=== PATIENT | male | born 1965 | race Hispanic/Latino ===

== ENCOUNTER 2017-05-21 07:01 | Emergency (ER) | payer SELFPAY ==
[2017-05-21 07:06] VITALS: BP 170/110
== END 2017-05-21 07:33 | disposition left against medical advice (07) ==
LOC: ED 07:01
DX: M54.2 Cervicalgia (principal); Z53.21 Procedure and treatment not carried out due to patient leaving prior to being seen by health care provider
CPT/HCPCS: 93005; 93010

== ENCOUNTER 2019-11-11 09:41 | Inpatient (IN) | payer BC ==
--- NOTE | 2019-11-11 10:01 | Cat Scan Report ---
CT head/brain wo con INDICATION: MAIN. TECHNIQUE: Routine CT head without contrast. All CT scans at this location are performed using CT dos e reduction for ALARA by means of automated exposure control. COMPARISON: None. FINDINGS: BRAIN / INTRACRANIAL CONTENTS: No acute hemorrhage, mass effect, midline shift, or hydrocephalus. No appreciable acute large territorial or lacunar infarct. No chronic infarct or focal atrophy. Normal b rain volume and ventricular/sulcal size for age. ORBITS: No significant abnormality of visualized orbits. SINUSES / MASTOIDS: There is mild mucosal thickening in the bilateral maxillary sinuses. ADDITIONAL FINDINGS: None. IMPRESSION: 1. No acute intracranial abnormality. Signer Name: Cornell Pedro MD Signed: 11/11/2019 9:57 AM Workstation Name: [id number]
--- NOTE | 2019-11-11 10:05 | Emergency Department Report ---
ED Neuro Deficit HPI - General Stated Complaint: POSS STROKE Time Seen by Provider: 11/11/19 09:51 - History of Present Illness Initial Comments: 53-year-old male reportedly developed slurred speech at 9:02 AM this morning. On my encounter with this patient he had an NIH stroke score of 0. His speech was coherent. He told me he had a "white coat syndrome". Fortunately, I was not wearing a white coat. I did ask him if he had trouble with anxiety and although he did appear somewhat anxious he stated no. In any case, he states he has not had previous similar such symptoms. He denies any focal weakness or numbness. He denied any difficulty with his gait or balance. I did confer with the tele-neurologist. He he did state that he could not rule out a large vessel occlusion clinically. Personally, I did not think this was a very likely scenario but I am sure the tele-neurologist is accurate and absolute sense. He stated that he offered TPA. I found this to some degree statistically surprising. However, we proceeded with angiography which was negative. The tele-neurologist did recommend the patient be admitted to complete a stroke work-up. The hospitalist was advised. -: Sudden Location: speech History of same: No Place: home On Anticoagulants: No Context: sudden onset Associated Symptoms: denies other symptoms - Related Data Allergies/Adverse Reactions: Allergies Allergy/AdvReac Type Severity Reaction Status Date / Time codeine Allergy Vomiting Verified 05/21/17 07:11 ED Review of Systems ROS: Stated complaint: POSS STROKE Other details as noted in HPI Constitutional: denies: chills, fever Eyes: denies: eye pain, vision change ENT: denies: ear pain, throat pain Respiratory: denies: cough, shortness of breath, wheezing Cardiovascular: denies: chest pain, palpitations Endocrine: no symptoms reported Gastrointestinal: denies: abdominal pain, nausea, diarrhea Genitourinary: denies: urgency, dysuria Musculoskeletal: denies: back pain, joint swelling, arthralgia Skin: denies: rash, lesions Neurological: denies: headache, weakness, paresthesias Psychiatric: denies: anxiety, depression Hematological/Lymphatic: denies: easy bleeding, easy bruising ED Past Medical Hx - Past Medical History Previous Medical History?: No - Social History Smoking Status: Current Every Day Smoker Substance Use Type: Alcohol ED Neuro Physical Exam - General General appearance: alert, in no apparent distress Suspected Stroke: Yes (Possible but does not appear likely) - Head Head exam: Present: atraumatic, normocephalic - Eye Eye exam: Present: normal appearance, PERRL, EOMI. Absent: scleral icterus - ENT ENT exam: Present: mucous membranes moist - Neck Neck exam: Present: normal inspection - Respiratory Respiratory exam: Present: normal lung sounds bilaterally. Absent: respiratory distress - Cardiovascular Cardiovascular Exam: Present: regular rate, normal rhythm. Absent: systolic murmur, diastolic murmur, rubs, gallop - GI/Abdominal GI/Abdominal exam: Present: soft, normal bowel sounds. Absent: distended, tenderness, guarding, rebound, rigid - Rectal Rectal exam: Present: deferred - Extremities Exam Extremities exam: Present: normal inspection - Back Exam Back exam: Present: normal inspection - Neurological Exam Neurological exam: Present: alert, oriented X3, CN II-XII intact, other (Speech coherent). Absent: motor sensory deficit - NIHSS Assessment Interval: Baseline 1a. Level of Consciousness: alert/keenly responsive 1b. LOC Questions: answers both correctly 1c. LOC Commands: performs tasks correctly 2. Best Gaze: normal 3. Visual: no visual loss 4. Facial Palsy: normal symmetrical movement 5b. Motor Arm Right: no drift 5a. Motor Arm Left: no drift 6a. Motor Leg Left: no drift 6b. Motor Leg Right: no drift 7. Limb Ataxia: absent 8. Sensory: normal 9. Best Language: no aphasia 10. Dysarthria: normal 11. Extinction/Inattention: no abnormality Total Score: 0 Stroke Severity: No Stroke Symptoms - Psychiatric Psychiatric exam: Present: normal affect, normal mood - Skin Skin exam: Present: warm, dry, intact, normal color. 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 11/11/19 11:39 - Lab Data Result diagrams: 11/11/19 10:05 11/11/19 09:44 Lab Results 11/11/19 11/11/19 11/11/19 Range/Units 09:44 10:05 10:05 WBC 6.2 (4.5-11.0) K/mm3 RBC 5.10 H (3.65-5.03) M/mm3 Hgb 16.5 H (11.8-15.2) gm/dl Hct 48.1 H (35.5-45.6) % MCV 94 (84-94) fl MCH 32 (28-32) pg MCHC 34 (32-34) % RDW 12.5 L (13.2-15.2) % Plt Count 213 (140-440) K/mm3 Lymph % (Auto) 26.7 (13.4-35.0) % [place] % (Auto) 7.5 H (0.0-7.3) % Eos % (Auto) 1.9 (0.0-4.3) % Baso % (Auto) 0.8 (0.0-1.8) % Lymph # 1.7 (1.2-5.4) K/mm3 [place] # 0.5 (0.0-0.8) K/mm3 Eos # 0.1 (0.0-0.4) K/mm3 Baso # 0.1 (0.0-0.1) K/mm3 Seg Neutrophils % 63.1 (40.0-70.0) % Seg Neutrophils # 3.9 (1.8-7.7) K/mm3 PT 13.5 (12.2-14.9) Sec. INR 1.01 (0.87-1.13) APTT 25.4 (24.2-36.6) Sec. Thrombin Time (15.1-19.6) Sec. Sodium 138 (137-145) mmol/L Potassium 4.3 (3.6-5.0) mmol/L Chloride 102.7 (98-107) mmol/L Carbon Dioxide 20 L (22-30) mmol/L Anion Gap 20 mmol/L BUN 12 (9-20) mg/dL Creatinine 1.0 (0.8-1.3) mg/dL Estimated GFR > 60 ml/min BUN/Creatinine Ratio 12 % Glucose 137 H (75-100) mg/dL POC Glucose (70-105) Calcium 9.8 (8.4-10.2) mg/dL Troponin T < 0.010 (0.00-0.029) ng/mL 11/11/19 11/11/19 Range/Units 10:05 10:42 WBC (4.5-11.0) K/mm3 RBC (3.65-5.03) M/mm3 Hgb (11.8-15.2) gm/dl Hct (35.5-45.6) % MCV (84-94) fl MCH (28-32) pg MCHC (32-34) % RDW (13.2-15.2) % Plt Count (140-440) K/mm3 Lymph % (Auto) (13.4-35.0) % [place] % (Auto) (0.0-7.3) % Eos % (Auto) (0.0-4.3) % Baso % (Auto) (0.0-1.8) % Lymph # (1.2-5.4) K/mm3 [place] # (0.0-0.8) K/mm3 Eos # (0.0-0.4) K/mm3 Baso # (0.0-0.1) K/mm3 Seg Neutrophils % (40.0-70.0) % Seg Neutrophils # (1.8-7.7) K/mm3 PT (12.2-14.9) Sec. INR (0.87-1.13) APTT (24.2-36.6) Sec. Thrombin Time 14.9 L (15.1-19.6) Sec. Sodium (137-145) mmol/L Potassium (3.6-5.0) mmol/L Chloride (98-107) mmol/L Carbon Dioxide (22-30) mmol/L Anion Gap mmol/L BUN (9-20) mg/dL Creatinine (0.8-1.3) mg/dL Estimated GFR ml/min BUN/Creatinine Ratio % Glucose (75-100) mg/dL POC Glucose 114 H (70-105) Calcium (8.4-10.2) mg/dL Troponin T (0.00-0.029) ng/mL - EKG Data -: EKG Interpreted by [place] EKG shows normal: sinus rhythm, axis (Left axis deviation), intervals, QRS complexes, ST-T waves Rate: normal Interpretation: normal EKG (No significant repolarization abnormality) - Radiology Data Radiology results: report reviewed CT head was normal per radiologist IMPRESSION: 1. No flow-limiting stenosis or large vessel occlusion in the intracranial arteries. 2. Tiny right ICA ophthalmic segment aneurysm. Critical care attestation.: If time is entered above; I have spent that time in minutes in the direct care of this critically ill patient, excluding procedure time. ED Disposition Clinical Impression: Dysarthria, Aneurysm, ophthalmic artery Disposition: OP ADMIT IP TO THIS HOSP Is pt being admited?: Yes Does the pt Need Aspirin: Yes Condition: Stable Referrals: RAFIQ PEÑA MD [Primary Care Provider] - 3-5 Days Time of Disposition: 11:39
--- NOTE | 2019-11-11 10:21 | Consultation ---
Medications and Allergies Allergies Allergy/AdvReac Type Severity Reaction Status Date / Time codeine Allergy Vomiting Verified 05/21/17 07:11 Physical Examination - Vital Signs Vital Signs: Vital Signs Pulse Resp BP Pulse Ox 96 H 16 155/97 98 11/11/19 09:45 11/11/19 09:45 11/11/19 09:45 11/11/19 09:45 Assessment and Plan [facility] Date of Service: 11/11/2019 09:46:38 Impression: Rule Out Acute Ischemic Stroke Comments/Sign-Out: Patient with no past medical history. Presents with speech impairment Head CT: No acute Intracranial hemorrhage. NIHSS 0 (but patient states speech is not at baseline) Symptoms/presentation is concerning for small Acute Ischemic Stroke. Even though I scored NIHSS as 0 but due to patients complaint of speech not being at baseline I offered alteplase which he declined. Due to speech impairment will do STAT head and neck CTA to investigate for Large Vessel Occlusion. Metrics: Last Known Well: 11/11/2019 07:00:00 [facility] Notification Time: 11/11/2019 09:45:51 Arrival Time: 11/11/2019 09:41:00 Stamp Time: 11/11/2019 09:46:38 Time First Login Attempt: 11/11/2019 09:50:53 Video Start Time: 11/11/2019 09:50:53 Symptoms: speech impairment NIHSS Start Assessment Time: 11/11/2019 09:54:46 Patient is not a candidate for tPA. Patient was not deemed candidate for tPA thrombolytics because of alteplase offered and patient decided not to receive it.. Video End Time: 11/11/2019 10:05:18 CT head was reviewed. Lower Likelihood of Large Vessel Occlusion but Following Stat Studies are Recommended CTA Head and Neck. ED Physician notified of diagnostic impression and management plan on 11/11/2019 10:17:44 Our recommendations are outlined below. Recommendations: Activate Stroke Protocol Admission/Order Set Stroke/Telemetry Floor Neuro Checks Bedside Swallow Eval DVT Prophylaxis IV Fluids, Normal Saline Head of Bed 30 Degrees Euglycemia and Avoid Hyperthermia (PRN Acetaminophen) Antiplatelet Therapy Recommended Routine Consultation with Inhouse Neurology for Follow up Care Sign Out: Discussed with Emergency Department Provider History of Present Illness: Patient is a 54 year old Male. Patient was brought by EMS for symptoms of speech impairment Patient with no known past medical history. last known well per patient: 7:00 then at 9:00 started having dysarthria. Anticoagulation or Antiplatelet use: no Premorbid Level of function: Independent, Normal cognition, Speech and gait -- Pertinent medical, surgical, family history reviewed. Medications list and allergies reviewed. - Pertinent positive and negative review of systems noted in History of Present Illness. Past Medical History: Anticoagulant use: No Antiplatelet use: No Examination: 1A: Level of Consciousness - Alert; keenly responsive + 0 1B: Ask Month and Age - Both Questions Right + 0 1C: Blink Eyes & Squeeze Hands - Performs Both Tasks + 0 2: Test Horizontal Extraocular Movements - Normal + 0 3: Test Visual Marsh - No Visual Loss + 0 4: Test Facial Palsy (Use Grimace if Obtunded) - Normal symmetry + 0 5A: Test Left Arm Motor Drift - No Drift for 10 Seconds + 0 5B: Test Right Arm Motor Drift - No Drift for 10 Seconds + 0 6A: Test Left Leg Motor Drift - No Drift for 5 Seconds + 0 6B: Test Right Leg Motor Drift - No Drift for 5 Seconds + 0 7: Test Limb Ataxia (FNF/Heel-Bocanegra) - No Ataxia + 0 8: Test Sensation - Normal; No sensory loss + 0 9: Test Language/Aphasia - Normal; No aphasia + 0 10: Test Dysarthria - Normal + 0 11: Test Extinction/Inattention - No abnormality + 0 NIHSS Score: 0 Patient/Family was informed the Neurology Consult would happen via TeleHealth consult by way of interactive audio and video telecommunications and consented to receiving care in this manner. Due to the immediate potential for life-threatening deterioration due to unde rlying acute neurologic illness, I spent 15 minutes providing critical care. This time includes time for face to face visit via telemedicine, review of medical records, imaging studies and discussion of findings with providers, the patient and/or family. Dr Earl Nuñez [facility] [phone]
[2019-11-11 10:24] LABS: Basophils # (Auto) 0.1 K/mm3 (0.0-0.1); Basophils % (Auto) 0.8 % (0.0-1.8); Eosinophils # (Auto) 0.1 K/mm3 (0.0-0.4); Eosinophils % (Auto) 1.9 % (0.0-4.3); Hematocrit 48.1 % (35.5-45.6); Hemoglobin 16.5 gm/dl (11.8-15.2); Lymphocytes # (Auto) 1.7 K/mm3 (1.2-5.4); Lymphocytes % (Auto) 26.7 % (13.4-35.0); Mean Corpuscular HGB Conc 34 % (32-34); Mean Corpuscular Volume 94 fl (84-94); Monocytes # (Auto) 0.5 K/mm3 (0.0-0.8); Monocytes % (Auto) 7.5 % (0.0-7.3); Platelet Count 213 K/mm3 (140-440); Red Cell Distribution Width 12.5 % (13.2-15.2)
[2019-11-11 10:46] LABS: BUN/Creatinine Ratio 12; Blood Urea Nitrogen 12 mg/dL (9-20); Calcium 9.8 mg/dL (8.4-10.2); Hemolysis Index 29
--- NOTE | 2019-11-11 10:46 | Cat Scan Report ---
CTA HEAD AND NECK WITH CONTRAST HISTORY: Stroke. COMPARISON: None. TECHNIQUE: All CT scans at this location are performed using CT dose reduction for ALARA by means of automated exposure control.. 3-D/MIP reformats postprocessed. Percentage stenosis is determined by d irect quantitative measurements of diseased internal carotid artery diameter compared with normal dis lópez internal carotid artery reference segments or by criteria similar to NASCET where applicable. CONTRAST: 100 ml of Omnipaque 350 FINDINGS: CTA HEAD: Intracranial vertebral arteries: No significant abnormality. Basilar artery: No significant abnormality. Posterior cerebral arteries: No significant abnormality. Intracranial internal carotid arteries: There is atherosclerotic plaque in the bilateral carotid siph ons without significant stenosis. There is a tiny broad necked aneurysm arising laterally from the ri ght ophthalmic ICA segment. This measures about 2 mm in neck dimension and 2 mm in the neck to dome d istance. Anterior cerebral arteries: No significant abnormality. Middle cerebral arteries: No significant abnormality. Dural venous sinuses:Not optimally opacified. No significant abnormality. IMPRESSION: 1. No flow-limiting stenosis or large vessel occlusion in the intracranial arteries. 2. Tiny right ICA ophthalmic segment aneurysm. Signer Name: Cornell Pedro MD Signed: 11/11/2019 10:41 AM Workstation Name: [id number]
[2019-11-11 10:50] LABS: INR 1.01 (0.87-1.13)
[2019-11-11 10:51] LABS: Partial Thromboplastin Time 25.4 Sec. (24.2-36.6)
--- NOTE | 2019-11-11 10:57 | Cat Scan Report ---
CTA NECK WITH CONTRAST HISTORY: Stroke. COMPARISON: None. TECHNIQUE: All CT scans at this location are performed using CT dose reduction for ALARA by means of automated exposure control.. 3-D/MIP reformats postprocessed. Percentage stenosis is determined by d irect quantitative measurements of diseased internal carotid artery diameter compared with normal dis lópez internal carotid artery reference segments or by criteria similar to NASCET where applicable. CONTRAST: 100 ml of Omnipaque 350 FINDINGS: CTA NECK: Aortic arch: No significant abnormality. Cervical vertebral arteries: There is atherosclerotic plaque at the origin of both vertebral arteries from the subclavian arteries without appreciable flow limiting stenosis. Common carotid arteries: Mild calcified plaque in the mid left common carotid artery without signific ant stenosis. Cervical internal carotid arteries: There is mixed plaque in the bilateral carotid bulbs which is not resulting in any significant stenosis. Additional findings: There is mild degenerative disease at C4-5 and C5-6 in the cervical spine. There is bilateral neural foraminal narrowing at C5-6 due to uncovertebral joint hypertrophy. IMPRESSION: 1. No flow-limiting stenosis or large vessel occlusion in the neck arteries. Signer Name: Cornell Pedro MD Signed: 11/11/2019 10:53 AM Workstation Name: [id number]
[2019-11-11] MEDS ORDERED: ASPIRIN 325 MG TAB PO ONE (11:39)
--- NOTE | 2019-11-11 12:25 | History and Physical Report ---
History of Present Illness Date of examination: 11/11/19 Date of admission: 11/11/19 Chief complaint: Slurred speech this morning History of present illness: Very pleasant 53-year-old male patient with no significant past medical history not on any medications presented to the emergency room with the complaints of sudden onset of slurred speech around 9 AM today, patient reports that his dysarthria lasted for 3 to 4 hours and completely resolved in the ER, patient did not have similar symptoms in the past, denies headache dizziness, denies any history of syncope or seizures, denies fever or any urinary symptoms. In the ER patient was evaluated by telemetry neurologist who evaluated the patient, feels not a candidate for TPA, could not rule out large vessel oc clusion clinically, recommend stroke protocol and stroke work-up. Patient denies any chest pain, shortness of breath, or palpitations Denies any nausea vomiting or abdominal pain CT head without contrast; no acute intracranial abnormality noted CT head without contrast; no acute intracranial abnormality noted CTA head no flow-limiting stenosis or large vessel occlusion in the intracranial arteries tiny right ICA ophthalmic segment aneurysm C TA neck no hemodynamically significant stenosis in the neck arteries MRI brain small volume cortical infarct in the left precentral gyrus in the convexity without associated hemorrhage or mass-effect MRA neck; no significant stenosis or large vessel occlusion in the neck arteries Patient is Past History Past Medical History: No medical history Past Surgical History: No surgical history Social history: smoking, other (Recreational drug use). denies: alcohol abuse Family history: no significant family history Medications and Allergies Allergies Allergy/AdvReac Type Severity Reaction Status Date / Time codeine Allergy Vomiting Verified 05/21/17 07:11 Home Medications Medication Instructions Recorded Confirmed Last Taken Type No Known Home Medications [No 11/11/19 11/11/19 Unknown History Reported Home Medications] Review of Systems Constitutional: no weight loss, no weight gain, no anorexia, no fatigue Ears, nose, mouth and throat: no nasal congestion, no nasal discharge Cardiovascular: no chest pain, no orthopnea, no palpitations Respiratory: no cough, no hemoptysis Gastrointestinal: no abdominal pain, no nausea, no vomiting Genitourinary Male: no dysuria, no hematuria Musculoskeletal: no myalgias, no arthritis Integumentary: no rash, no lesions Neurological: change in speech, other (Slurred speech) Psychiatric: anxiety, no depression Endocrine: no cold intolerance, no heat intolerance Hematologic/Lymphatic: no easy bruising, no easy bleeding Allergic/Immunologic: no urticaria, no allergic rhinitis Exam - Constitutional Vitals: Temp Pulse Resp BP Pulse Ox 98.1 F 77 21 149/91 96 11/11/19 10:43 11/11/19 12:00 11/11/19 12:00 11/11/19 12:00 11/11/19 12:00 General appearance: Present: no acute distress, well-nourished, other (Speech clear) - EENT Eyes: Present: PERRL, EOM intact - Neck Neck: Present: supple, normal ROM - Respiratory Respiratory effort: normal Respiratory: bilateral: diminished, negative: rales, rhonchi, wheezing - Cardiovascular Rhythm: regular - Extremities Extremities: no ischemia, No edema - Abdominal General gastrointestinal: Present: soft, non-tender, non-distended, normal bowel sounds - Integumentary Integumentary: Present: clear, warm - Musculoskeletal Musculoskeletal: strength equal bilaterally, generalized weakness - Psychiatric Psychiatric: appropriate mood/affect, cooperative - Neurologic Neurologic: moves all extremities, other (Speech clear) HEART Score - HEART Score Troponin: Troponin T < 0.010 ng/mL (0.00-0.029) 11/11/19 09:44 Results - Labs CBC & Chem 7: 11/11/19 14:18 11/11/19 09:44 Labs: Abnormal lab results 11/11/19 11/11/19 11/11/19 Range/Units 09:44 10:05 10:05 RBC 5.10 H (3.65-5.03) M/mm3 Hgb 16.5 H (11.8-15.2) gm/dl Hct 48.1 H (35.5-45.6) % RDW 12.5 L (13.2-15.2) % [place] % (Auto) 7.5 H (0.0-7.3) % Thrombin Time 14.9 L (15.1-19.6) Sec. Carbon Dioxide 20 L (22-30) mmol/L Glucose 137 H (75-100) mg/dL POC Glucose (70-105) 11/11/19 Range/Units 10:42 RBC (3.65-5.03) M/mm3 Hgb (11.8-15.2) gm/dl Hct (35.5-45.6) % RDW (13.2-15.2) % [place] % (Auto) (0.0-7.3) % Thrombin Time (15.1-19.6) Sec. Carbon Dioxide (22-30) mmol/L Glucose (75-100) mg/dL POC Glucose 114 H (70-105) Assessment and Plan --Acute CVA; Patient not a candidate for TPA Aspirin and statin Neuro checks, neuro work-up CT head without contrast, MRI, MRA brain CTA neck, CTA head,, Physical therapy, Occupational Therapy, speech therapy DC planning per case management CT head without contrast; no acute intracranial abnormality noted CT head without contrast; no acute intracranial abnormality noted CTA head no flow-limiting stenosis or large vessel occlusion in the intracranial arteries tiny right ICA ophthalmic segment aneurysm C TA neck no hemodynamically significant stenosis in the neck arteries MRI brain small volume cortical infarct in the left precentral gyrus in the convexity without associated hemorrhage or mass-effect MRA neck; no significant stenosis or large vessel occlusion in the neck arteries --Dyslipidemia; Statin, low-cholesterol diet --Ongoing tobacco use; Smoking cessation counseling, nicotine patch as needed --DVT prophylaxis; Lovenox We will closely monitor the patient and adjust management as needed Plan of care reviewed with the patient and his nurse
[2019-11-11] MEDS ORDERED: ZOLPIDEM 5 MG TAB PO PRN (12:28)
[2019-11-11] MEDS ORDERED: KETOROLAC 30 MG/1 ML INJ IV PRN (12:28)
[2019-11-11] MEDS ORDERED: DOCUSATE SODIUM 100 MG CAP PO PRN (12:28)
[2019-11-11] MEDS ORDERED: ACETAMINOPHEN 325 MG TAB PO PRN (12:28)
[2019-11-11] MEDS ORDERED: NICOTINE 14 MG/24 HR PATCH TD ONE (13:00)
[2019-11-11 14:46] LABS: Basophils # (Auto) 0.1 K/mm3 (0.0-0.1); Basophils % (Auto) 1.1 % (0.0-1.8); Eosinophils # (Auto) 0.1 K/mm3 (0.0-0.4); Eosinophils % (Auto) 2.1 % (0.0-4.3); Hematocrit 50.2 % (35.5-45.6); Hemoglobin 17.2 gm/dl (11.8-15.2); Lymphocytes # (Auto) 1.7 K/mm3 (1.2-5.4); Mean Corpuscular HGB Conc 34 % (32-34); Mean Corpuscular Volume 95 fl (84-94); Monocytes # (Auto) 0.5 K/mm3 (0.0-0.8); Monocytes % (Auto) 7.5 % (0.0-7.3); Platelet Count 223 K/mm3 (140-440); Red Blood Count 5.26 M/mm3 (3.65-5.03); Red Cell Distribution Width 12.6 % (13.2-15.2)
[2019-11-11 14:55] LABS: INR 1.02 (0.87-1.13)
[2019-11-11 14:56] LABS: Partial Thromboplastin Time 26.9 Sec. (24.2-36.6); Thrombin Time 18.4 Sec. (15.1-19.6)
[2019-11-11 15:09] LABS: Creatine Kinase MB 1.7 ng/mL (0.0-4.0)
[2019-11-11 15:10] LABS: Chol/HDL Ratio 3.15 %
--- NOTE | 2019-11-11 16:44 | Magnetic Resonance Report ---
MRI BRAIN WITHOUT CONTRAST, MRA HEAD WITHOUT CONTRAST, MRA NECK WITHOUT CONTRAST INDICATION / CLINICAL INFORMATION: Slurred speech. TECHNIQUE: Multiplanar, multi sequential MRI images of the brain. Routine MRA of neck are performed. 3-D/MIP re formats postprocessed. Percentage stenosis is determined by direct quantitative measurements of dista l internal carotid artery diameter compared with normal reference segments or by criteria similar to NASCET where applicable. COMPARISON: None available. FINDINGS: MR BRAIN: BRAIN / INTRACRANIAL CONTENTS: There is a small volume cortical infarct in the left precentral gyrus mid convexity. There is no associated hemorrhage or adverse mass effect. No chronic infarct or signif icant atrophy. No significant demyelinating changes. CRANIOCERVICAL JUNCTION: No significant abnormality. ORBITS: No significant abnormality of visualized orbits. SINUSES / MASTOIDS: There is mild mucosal thickening in the bilateral maxillary sinuses. ADDITIONAL FINDINGS: None. MRA NECK: Aortic arch: No significant abnormality. Cervical vertebral arteries: No significant abnormality. Common carotid arteries: No significant abnormality. Cervical internal carotid arteries: No significant abnormality. Additional findings: None. IMPRESSION: 1. Small volume cortical infarct in the left precentral gyrus and the convexity without associated he morrhage or adverse mass effect. 2. No significant stenosis or large vessel occlusion in the neck arteries. Signer Name: Cornell Pedro MD Signed: 11/11/2019 4:40 PM Workstation Name: [id number]
[2019-11-11] MEDS ORDERED: ENOXAPARIN 40 MG/0.4 ML INJ SUB-Q SCH (22:00)
[2019-11-12 08:35] VITALS: BP 130/90
[2019-11-12] MEDS ORDERED: ASPIRIN 325 MG TAB PO SCH (10:00)
[2019-11-12] MEDS ORDERED: PANTOPRAZOLE 40 MG TAB PO SCH (10:00)
--- NOTE | 2019-11-12 13:55 | Consultation ---
History of Present Illness Consult date: 11/12/19 Reason for Consult: Slurred speech Chief complaint: Slurred speech History of present illness: Patient is a 53 y/o man w/ no PMH, other than active smoker. He presented yesterday with symptoms of slurred speech, which began in the morning. Symptoms were noted to have resolved by the time the patient was evaluated in the ER. Symptoms of slurred speech lasted for about 2-4 hours before resolving. Past History Past Medical History: No medical history Past Surgical History: No surgical history Social history: smoking, alcohol abuse (2-5 drinks per day. ), other (Recreational drug use) Family history: no significant family history Medications and Allergies Allergies Allergy/AdvReac Type Severity Reaction Status Date / Time codeine Allergy Vomiting Verified 05/21/17 07:11 Home Medications Medication Instructions Recorded Confirmed Last Taken Type No Known Home Medications [No 11/11/19 11/11/19 Unknown History Reported Home Medications] Active Meds: Active Medications Acetaminophen (Tylenol) 650 mg PO Q4H PRN PRN Reason: Pain, Mild (1-3) Aspirin (Aspirin) 325 mg PO QDAY [facility] Atorvastatin Calcium (Lipitor) 40 mg PO QHS [facility] Last Admin: 11/11/19 21:43 Dose: 40 mg Documented by: Docusate Sodium (Colace) 100 mg PO BID PRN PRN Reason: Constipation Enoxaparin Sodium (Enoxaparin) 40 mg SUB-Q QDAY@2200 [facility] Last Admin: 11/11/19 21:43 Dose: 40 mg Documented by: Ketorolac Tromethamine (Toradol) 15 mg IV Q6H PRN PRN Reason: Pain, Mild (1-3) Stop: 11/16/19 12:27 Pantoprazole Sodium (Protonix) 40 mg PO QDAY [facility] Zolpidem Tartrate (Ambien) 5 mg PO QHS PRN PRN Reason: Sleep Review of Systems All systems: negative Neurological: change in speech Physical Examination - Vital Signs Vital Signs: Vital Signs Pulse Resp BP Pulse Ox 96 H 16 155/97 98 11/11/19 09:45 11/11/19 09:45 11/11/19 09:45 11/11/19 09:45 - Physical Exam Narrative exam: Patient is alert, awake, oriented x4, follows complex commands. No dysarthria or aphasia noted. PERRL, EOMI, VFF, tongue midline, bilaterally intact to LT, no facial weakness noted. 5/5 strength in all extremities. Bilaterally intact light touch. Bilaterally intact to FTN and HTS. - Level of Consciousness 1a. Level of Consciousness: alert/keenly responsive - LOC Questions 1b. LOC Questions: answers both correctly - LOC Command 1c. LOC Commands: performs tasks correctly - Best Gaze 2. Best Gaze: normal - Visual 3. Visual: no visual loss - Facial Palsy 4. Facial Palsy: normal symmetrical movement - Motor Arm 5a. Motor Arm Left: no drift 5b. Motor Arm Right: no drift - Motor Leg 6a. Motor Leg Left: no drift 6b. Motor Leg Right: no drift - Limb Ataxia 7. Limb Ataxia: absent - Sensory 8. Sensory: normal - Best Language 9. Best Language: no aphasia - Dysarthria 10. Dysarthria: normal - Extinction and Inattention 11. Extinction/Inattention: no abnormality - Scoring Total Score: 0 Stroke Severity: No Stroke Symptoms Results - Laboratory Findings CBC and BMP: 11/11/19 14:18 11/11/19 09:44 Abnormal Lab Findings: Abnormal Labs 11/11/19 11/11/19 11/11/19 09:44 10:05 10:05 RBC 5.10 H Hgb 16.5 H Hct 48.1 H MCV MCH RDW 12.5 L [place] % (Auto) 7.5 H Thrombin Time 14.9 L Carbon Dioxide 20 L Glucose 137 H POC Glucose Triglycerides Cholesterol LDL Cholesterol Direct HDL Cholesterol 11/11/19 11/11/19 11/11/19 10:42 14:18 14:18 RBC 5.26 H Hgb 17.2 H Hct 50.2 H MCV 95 H MCH 33 H RDW 12.6 L [place] % (Auto) 7.5 H Thrombin Time Carbon Dioxide Glucose POC Glucose 114 H Triglycerides 217 H Cholesterol 249 H LDL Cholesterol Direct 151 H HDL Cholesterol 79 H Assessment and Plan Patient is a 53 y/o man w/ no PMH, other than active smoker, who p/w difficulty with speech. According to the patient's clinical findings, he has had an acute stroke. Plan: 1. Stroke: - CT head: No acute abnormalities - CTA head/neck: No significant stenosis. 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 - MRI Brain: Small left cortical infarct in pre-central gyrus. - Echo: Pending - Recommend dual antiplatelet therapy with aspirin 81 mg daily and Plavix 75 mg daily for 30 days, after which Plavix can be stopped. Discussed risks and benefits of dual antiplatelet therapy with patient, including hemorrhage, and patient agreed to take this. - Cont. statin. LDL goal <70 - Telemetry monitoring while in house - PT/OT/ST - DVT Ppx: Recommend lovenox - Recommend for patient to follow up with interventional neurology at [facility] in 2-3 weeks for evaluation of Right ICA ophthalmic aneurysm. - As etiology of stroke is cryptogenic, would recommend for patient to have long-term cardiac monitoring with 30-day MCOT or ILR by cardiology as outpatient. 2. Hypertension: - Recommend BP goal of <220/120 to allow for permissive HTN for first 24-48 hours. Can target normotension after that. - Will continue to monitor patient. Thank you for allowing me to take part in the care of this patient. Shay Jones MD Neurology This clinical encounter was provided via live telemedicine platform. Consultat herve service was provided for neurology to support local providers. The Acute Teleneurology team should be contacted with any neurologic worsening or clinical changes, new test results, or new patient history that is reported to or discovered by the local team following completion of the teleneurology consultation, specifically that which has the potential to impact the consultative recommendations. Patient/Family was informed the Neurology Consult would happen via TeleHealth consult by way of interactive audio and video telecommunications and consented to receiving care in this manner. Due to the potential for life-threatening deterioration due to underlying neurologic illness, and limited resources available for patient care, telemedicine was used as means of patient care. Telemedicine consultation is limited in the extent of physical exam that can be virtually provided. Time spent evaluating patient includes time for face to face visit via telemedicine, review of medical records, imaging studies and discussion of findings with providers, the patient and/or family.
--- NOTE | 2019-11-12 15:15 | Discharge Summary ---
Providers - Providers Date of Admission: 11/11/19 11:40 Date of discharge: 11/12/19 Attending physician: SHYANNE GLOVER 11/11/19 12:31 Occupational Therapy Evaluate and Treat [CONS] Routine Comment: Reason For Exam: Neuro symptoms/evaluate and treat Physical Therapy Evaluation and Treat [CONS] Routine Comment: Reason For Exam: Acute CVA/evaluate and treat 11/11/19 12:36 Speech Therapy Evaluation and Treat [CONS] Routine Reason For Exam: Slurred speech/acute CVA 11/11/19 18:08 Consult to Physician [CONS] Routine Comment: Consulting Provider: KHADIJAH RODARTE Physician Instructions: Reason For Exam: Acute CVA Primary care physician: RAFIQ PEÑA Hospitalization Condition: Stable Hospital course: --Acute CVA; Patient not a candidate for TPA Aspirin and statin Neuro checks, neuro work-up CT head without contrast, MRI, MRA brain CTA neck, CTA head,, Physical therapy, Occupational Therapy, speech therapy DC planning per case management CT head without contrast; no acute intracranial abnormality noted CT head without contrast; no acute intracranial abnormality noted CTA head no flow-limiting stenosis or large vessel occlusion in the intracranial arteries tiny right ICA ophthalmic segment aneurysm C TA neck no hemodynamically significant stenosis in the neck arteries MRI brain small volume cortical infarct in the left precentral gyrus in the convexity without associated hemorrhage or mass-effect MRA neck; no significant stenosis or large vessel occlusion in the neck arteries --Dyslipidemia; Statin, low-cholesterol diet --Ongoing tobacco use; Smoking cessation counseling, nicotine patch as needed --DVT prophylaxis; Lovenox Disposition: DC-01 TO HOME OR SELFCARE Time spent for discharge: 32 min Core Measure Documentation - Palliative Care Palliative Care/ Comfort Measures: Not Applicable - Core Measures Any of the following diagnoses?: stroke - Stroke Discharge Requirements Statin for LDL = or >70 mg/dl on DC: Yes Anticoag for atrial fib/atrial flutter: Not Applicable (No A. fib or flutter) Antithrombotic for ischemic stroke: Yes Exam - Constitutional Vitals: Temp Pulse Resp BP Pulse Ox 98.1 F 62 20 130/90 97 11/12/19 07:52 11/12/19 10:00 11/12/19 07:52 11/12/19 07:52 11/12/19 10:00 General appearance: Present: no acute distress, well-nourished - EENT Eyes: Present: PERRL, EOM intact - Neck Neck: Present: supple, normal ROM - Respiratory Respiratory effort: normal Respiratory: bilateral: diminished, negative: rales, rhonchi, wheezing - Cardiovascular Rhythm: regular Heart Sounds: Present: S1 & S2 - Extremities Extremities: no ischemia, No edema - Abdominal General gastrointestinal: Present: soft, non-tender, non-distended, normal bowel sounds - Integumentary Integumentary: Present: clear, warm - Musculoskeletal Musculoskeletal: strength equal bilaterally - Psychiatric Psychiatric: appropriate mood/affect, cooperative - Neurologic Neurologic: moves all extremities Plan Activity: advance as tolerated Diet: low cholesterol Special Instructions: smoking cessation Additional Instructions: If you have worsening symptoms contact MD or go to emergency room. Neurologist advised you to see neuro endovascular surgeon at [facility] in 1 -[address]Raul Mitchell [for further evaluation and management of tiny right ICA ophthalmic segment aneurysm]. Advised to see private neurologist in 1 week. Need to take aspirin 81 mg daily for long time. Plavix 75 mg p.o. daily for only 1 month Follow up with: RAFIQ PEÑA MD [Primary Care Provider] - 3-5 Days JAREK MCKEON MD [Staff Physician] - 7 Days Prescriptions: Aspirin EC [Halfprin EC] 81 mg PO QDAY #30 tablet AtorvaSTATin [Lipitor] 80 mg PO QHS #30 tab Clopidogrel [Plavix] 75 mg PO QDAY #30 tablet
[2019-11-13] MEDS ORDERED: ASPIRIN EC 81 MG TAB PO SCH (10:00)
[2019-11-13] MEDS ORDERED: CLOPIDOGREL 75 MG TAB PO SCH (10:00)
== END 2019-11-12 19:09 | disposition home or self-care (01) | DRG 66 ==
LOC: ED 09:41 → 4A 11:40
PROVIDERS: ADMIT Internal Medicine; ATTEND Internal Medicine
DX: I63.9 Cerebral infarction, unspecified (principal); R47.1 Dysarthria and anarthria; R47.81 Slurred speech; I67.1 Cerebral aneurysm, nonruptured; F17.200 Nicotine dependence, unspecified, uncomplicated; E78.5 Hyperlipidemia, unspecified; R29.700 NIHSS score 0; I10 Essential (primary) hypertension; Z88.5 Allergy status to narcotic agent
CPT/HCPCS: 36415; 70450; 70496; 70498; 70549; 70551; 80048; 80061; 82550; 82553; 82962; 84484; 85025; 85610; 85670; 85730; 93005; 93306; 99406; G0378; A9270-GY; J1650; Q9967